=== PATIENT | female | born 1945 | race Caucasian/White ===

== ENCOUNTER 2024-03-23 15:53 | Outpatient (CLI) | payer MEDICARE, SELFPAY ==
--- NOTE | 2024-03-23 15:45 | DI.RAD_ITS ---
Exam(s) XR KNEE RT 4V AP,LAT,VIVIEN,PAT EXAM: XR KNEE RT 4V AP,LAT,VIVIEN,PAT CLINICAL HISTORY: eval R knee pain. TECHNIQUE: 2D digital imaging was performed of the right knee. Four views obtained. Merchant, AP, la teral and PA tunnel views were obtained. COMPARISON: No exams were available for comparison FINDINGS: BONES: On the merchant's view there is a lucency seen anteriorly in the lateral femoral condyle which may represent a fracture. Please correlate with the patient's clinical history. No bony destructiv e lesion is seen. JOINTS: The knee is normally aligned. No joint effusion. Mild spurring is seen the posterior patella . SOFT TISSUE: Normal. IMPRESSION: Linear lucency seen in the lateral femoral condyle on the emergency view. Question of a fracture syed angelito artifact. Please correlate with the patient's clinical history. If further evaluation is richmond brennan, a CT scan should be considered. Unexpected findings DATA REPOSITORY: RADIATION DOSE DELIVERED:
== END 2024-03-23 15:54 | disposition home or self-care (01) ==
LOC: DIORS 15:53
PROVIDERS: Visit Provider Student in an Organized Health Care Education/Training Program
DX: M23.91 Unspecified internal derangement of right knee; M17.11 Unilateral primary osteoarthritis, right knee
CPT/HCPCS: 99203; 73564

== ENCOUNTER 2025-01-22 08:44 | Outpatient (CLI) | payer MEDICARE, SELFPAY ==
--- NOTE | 2025-01-22 09:08 | DI.RAD_ITS ---
Exam(s) XR KNEE RT 4V AP,LAT,VIVIEN,PAT EXAM: XR KNEE RT 4V AP,LAT,VIVIEN,PAT CLINICAL HISTORY: RIGHT KNEE PAIN. TECHNIQUE: 2D digital imaging was performed of the right knee. Four views obtained. Merchant, AP, lateral and PA tunnel views were obtained. COMPARISON: CR XR KNEE RT 4V AP,LAT,VIVIEN,PAT from 03/23/2024 FINDINGS: BONES: No acute fracture is present. No bony destructive lesion is seen. JOINTS: The knee is normally aligned. There is a joint effusion present. There is chondrocalcinosis present. SOFT TISSUE: Normal. 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 DATA REPOSITORY: RADIATION DOSE DELIVERED:
--- NOTE | 2025-01-22 09:08 | DI.RAD_ITS ---
Exam(s) XR HIP RT COMPLETE AP PELVIS EXAM: XR HIP RT COMPLETE AP PELVIS CLINICAL HISTORY: RIGHT HIP PAIN. TECHNIQUE: 2D digital imaging was performed. Two views COMPARISON: No exams were available for comparison FINDINGS: BONES: No acute fracture is present. No bony destructive lesion is seen. Mild enthesophytes at the greater trochanters. JOINTS: No dislocation present. There is mild narrowing of the right hip joint space. There is spurring at the superior acetabulum. There is mild spurring at the margin of the femoral head. The left hip joint space is maintained. SOFT TISSUE: Normal. IMPRESSION: Mild degenerative changes of the right hip DATA REPOSITORY: RADIATION DOSE DELIVERED:
== END 2025-01-22 08:45 | disposition home or self-care (01) ==
LOC: DIORS 08:44
PROVIDERS: Visit Provider Physician Assistant
DX: M23.91 Unspecified internal derangement of right knee (principal); M25.551 Pain in right hip; M70.61 Trochanteric bursitis, right hip; W19.XXXA Unspecified fall, initial encounter
CPT/HCPCS: 99214; 73502; 73564

== ENCOUNTER 2025-02-11 01:14 | Outpatient (CLI) | payer MEDICARE, SELFPAY ==
--- NOTE | 2025-02-11 07:00 | DI.MRI_ITS ---
Exam(s) MR LOWER JOINT RT WO EXAM: MR LOWER JOINT RT WO CLINICAL HISTORY: PAIN,internal derangement rt knee,m23.91 TECHNIQUE: Multiplanar multisequence MRI of the knee was performed. COMPARISON: CR XR KNEE RT 4V AP,LAT,VIVIEN,PAT from 01/22/2025 FINDINGS: EFFUSION: There is a prominent knee joint effusion with synovial thickening. There is also a Moore cyst in the medial popliteal fossa which measures approximately 5 cm length by 1 cm AP x 1 cm wide. MARROW:There is no evidence of fracture, bone contusion, nor osteochondral defects.. There are no significant osseous lesions. PATELLOFEMORAL COMPARTMENT: There is signal abnormality in the quadriceps tendon approximately 2 cm above the superior pole the patella consistent with element of quadriceps tendinitis. This may also extend beyond the field of view of this study. There is also a small amount of fluid in the prepatellar bursa as well as small amount of fluid anterior to the superior aspect of the patellar ligament. There is full-thickness thinning of the retropatellar cartilage over the medial facet with mild subarticular edema in the posterior patella at this level. There is relative preservation of the retropatellar cartilage over the lateral facet.There is no intraosseous signal to suggest recent patellar dislocation. There are no patellar retinacular tears. CRUCIATE LIGAMENTS: There is significant signal abnormality throughout the length of the anterior cruciate ligament. This is probably related to a combination of chronic degenerative change and some partial tearing of this structure. The posterior cruciate ligament is intact. MEDIAL COMPARTMENT/MEDIAL MENISCUS: There is a tiny tear on the inferior surface of the posterior horn of the medial meniscus. There is also some horizontal linear signal in the posterior horn but this does not violate an articular surface. There is no obvious tear of the anterior horn of the medial meniscus.. There is significant full-thickness cartilage loss over the main weight-bearing surface of the medial femoral condyle, not associated with subarticular edema nor osteochondral defects. MEDIAL COLLATERAL LIGAMENT: Sprain signal. No high-grade tear. LATERAL COMPARTMENT/LATERAL MENISCUS: There is tearing in the anterior horn of the lateral meniscus. There is also horizontal tearing in the posterior horn of the lateral meniscus. The meniscal root is not detached. There is mild articular cartilage thinning in the lateral compartment. No subarticular edema. There are no marginal osteophytes the lateral compartment. ILIOTIBIAL BAND: Intact LATERAL COLLATERAL LIGAMENT COMPLEX: The fibular collateral ligament is intact. The biceps femoris tendon is intact.Popliteus muscle and tendon are intact. IMPRESSION: 1. There is signal abnormality throughout the length of the anterior cruciate ligament. This is probably a combination of chronic degenerative change and an element of tearing of this structure. There is some intact strands of this structure still evident. The posterior cruciate ligament is intact. 2. There is a small tear in the inferior surface of the posterior horn of the medial meniscus. There is significant full-thickness cartilage loss over the main weight-bearing surface of the medial femoral condyle, not associated with subarticular edema nor osteochondral defects. 3. There is tear also evident both the anterior and posterior horns of the lateral meniscus. There is mild or articular cartilage loss in lateral compartment (when compared to the medial compartment) no marginal osteophytes. 4. There is sprain signal in the medial collateral ligament. No high-grade tear. Lateral collateral ligament complex components appear intact. 5. There is significant size joint effusion. Some synovial thickening is noted. There is also a Moore cyst in the popliteal fossa measuring 5 cm length by 1 cm wide. DATA REPOSITORY:
== END 2025-02-11 01:34 ==
LOC: DI 01:15
PROVIDERS: Visit Provider Student in an Organized Health Care Education/Training Program
DX: M23.91 Unspecified internal derangement of right knee (principal)
CPT/HCPCS: 73721

== ENCOUNTER → 2025-03-01 14:54 | Outpatient (BNVA) | payer MEDICARE, SELFPAY | PROVIDERS: Visit Provider Student in an Organized Health Care Education/Training Program | DX: M17.11 Unilateral primary osteoarthritis, right knee (principal) | CPT/HCPCS: 99214 ==